=== PATIENT | male | born 1960 | race Caucasian/White ===

== ENCOUNTER 2018-06-09 08:43 | Emergency (ER) | payer MEDICAID ==
[~2018-06-09] VITALS: Ht 165.1 cm; Wt 69.0 kg
[2018-06-09] MEDS ORDERED: KETOROLAC 60MG/2ML VIAL IM STA (10:06)
[2018-06-09 18:47] VITALS: BP 137/79
== END 2018-06-09 19:33 | disposition short-term general hospital (02) ==
LOC: ER 09:28
DX: S32.491A Other specified fracture of right acetabulum, initial encounter for closed fracture (principal); F17.200 Nicotine dependence, unspecified, uncomplicated; V03.10XA Pedestrian on foot injured in collision with car, pick-up truck or van in traffic accident, initial encounter; Y93.89 Activity, other specified; Y92.014 Private driveway to single-family (private) house as the place of occurrence of the external cause
CPT/HCPCS: 72100; 73502; 96372; 99285; J1885